=== PATIENT | female | born 1940 | race Caucasian/White ===

== ENCOUNTER 2016-10-15 09:14 | Emergency (ER) | payer OTHER ==
[2016-10-15 09:30] VITALS: RESP 20
--- NOTE | 2016-10-15 10:01 | C.PDOC ---
History Of Present Illness 75 y/o female PMHx pacemaker "cardiac arrhythmia", HTN, asthma, presents to the ED with complains of dizziness, nausea, vomiting which onset today. Pt also reports mild epigastric pain. Pt is poor historian. Denies fever, cough, SOB, chest pain or any other complaints. Time Seen by Provider: 10/15/16 09:52 Chief Complaint (Nursing): Abdominal Pain History Per: Patient Onset/Duration Of Symptoms: Hrs Current Symptoms Are (Timing): Still Present Severity: Mild Location Of Pain/Discomfort: Epigastric Radiation Of Pain To:: None Quality Of Discomfort: "Pain" Associated Symptoms: Nausea, Vomiting. denies: Fever, Chest Pain Exacerbating Factors: None Alleviating Factors: None Recent travel outside of the [place]: No Past Medical History Reviewed: Historical Data, Nursing Documentation, Vital Signs Vital Signs: Last Vital Signs Temp 97.5 F L 10/15/16 09:20 Pulse 77 10/15/16 11:40 Resp 20 10/15/16 11:40 BP 141/61 10/15/16 11:40 Pulse Ox 97 10/15/16 11:40 - Medical History PMH: Asthma, Cardia Arrhythmia, Diverticulitis, HTN Surgical History: Pacemaker - [facility] Procedures CATARAC PHACOEMULS/ASPIR (08/11/13) INSERT LENS AT CATAR EXT (08/11/13) PHYSICAL THERAPY NEC (07/08/14) Family History: States: Unknown Family Hx - Social History Hx Tobacco Use: No Hx Alcohol Use: No Hx Substance Use: No - Immunization History Hx Tetanus Toxoid Vaccination: No Hx Influenza Vaccination: No Hx Pneumococcal Vaccination: No Review Of Systems Constitutional: Negative for: Fever, Chills Cardiovascular: Negative for: Chest Pain Respiratory: Negative for: Cough, Shortness of Breath Gastrointestinal: Positive for: Nausea, Vomiting, Abdominal Pain. Negative for : Diarrhea Neurological: Positive for: Dizziness Physical Exam - Physical Exam Appears: Non-toxic, No Acute Distress Skin: Warm, Dry, No Rash Head: Atraumatic, Normacephalic Oral Mucosa: Moist Neck: Normal ROM, Supple Chest: Symmetrical Cardiovascular: Rhythm Regular, No Murmur Respiratory: Normal Breath Sounds, No Rales, No Rhonchi, No Wheezing Gastrointestinal/Abdominal: Soft, Tenderness (epigastric), No Guarding, No Rebound Extremity: Normal ROM, No Pedal Edema Extremity: Bilateral: Atraumatic Neurological/Psych: Oriented x3, Normal Speech ED Course And Treatment - Laboratory Results Result Diagrams: 10/15/16 10:42 10/15/16 10:42 ECG: Interpreted By Me, Viewed By Me ECG Rhythm: Sinus Rhythm, L BBB ECG Interpretation: No Changes From Prior Rate From EC (BPM) O2 Sat by Pulse Oximetry: 96 (on room air) Pulse Ox Interpretation: Normal - Radiology CXR: Viewed By Me, Read By Radiologist CXR Interpretation: Yes: No Acute Disease Medical Decision Making Medical Decision Making: r/o atypcial cardiac, colitis, uti, metabolic abnormality. Plan: EKG, labs, CXR, protonix, zofran, UA, IV fluids 143: ct st show ?diverticulits. pt with minimal ttp. will d/c with antibitoics, advise outpt f/u. pt states she feels well to go home, asking for d/c. stable for outpt management. Disposition - Disposition Referrals: Adam Damon MD [Staff Provider] - Disposition: HOME/ ROUTINE Disposition Time: 13:44 Condition: STABLE Additional Instructions: please see specialist. return to er with worsening symptoms or concerns. Prescriptions: Ciprofloxacin [Cipro] 500 mg PO BID #14 tab metroNIDAZOLE [Flagyl] 500 mg PO TID #21 tab Instructions: Dizziness (ED), Acute Abdominal Pain (ED), Diverticulitis (ED) - Clinical Impression Clinical Impression: Abdominal pain, Dizziness - Scribe Statement The provider has reviewed the documentation as recorded by the Bronwyn Hough Provider Attestation: All medical record entries made by the Bronwyn were at my direction and personally dictated by me. I have reviewed the chart and agree that the record accurately reflects my personal performance of the history, physical exam, medical decision making, and the department course for this patient. I have also personally directed, reviewed, and agree with the discharge instructions and disposition.
[2016-10-15 10:41] LABS: RBC URINE 9 /hpf (0-3); URINE BILIRUBIN NEGATIVE (NEGATIVE); URINE BLOOD 1+ (NEGATIVE); URINE COLOR Straw (YELLOW); URINE GLUCOSE (UA) NORMAL (Normal); URINE KETONE NEGATIVE (NEGATIVE); URINE LEUKOCYTE ESTERASE NEG Leu/uL (Negative); URINE PROTEIN 1+ mg/dL (NEGATIVE); URINE UROBILINOGEN NORMAL mg/dL (0.2-1.0); WBC URINE 1 /hpf (0-5)
[2016-10-15 10:49] LABS: BASO # 0.1 K/uL (0.0-0.2); BASO % 0.7 % (0.0-2.0); EOS # 0.1 K/uL (0.0-0.7); EOS % 0.6 % (0.0-4.0); HEMATOCRIT 44.4 % (34.0-47.0); LYMPH # 0.9 K/uL (1.0-4.3); LYMPH % 9.2 % (20.0-40.0); MEAN CELL VOLUME 92.4 fL (81.0-99.0); MEAN CORPUSCULAR HEMOGLOBIN 30.5 pg (27.0-31.0); MEAN CORPUSCULAR HGB CONC 33.1 g/dL (33.0-37.0); MEAN PLATELET VOLUME 8.7 fL (7.2-11.7); MONO # 0.7 K/uL (0.0-0.8); MONO % 6.6 % (0.0-10.0); PLATELET COUNT 281 K/uL (130-400); RED CELL DISTRIBUTION WIDTH 13.6 % (11.5-14.5); WHITE BLOOD COUNT 10.1 K/uL (4.8-10.8)
[2016-10-15 10:55] LABS: CHLORIDE 99 mmol/L (98-107); POTASSIUM 3.6 mmol/L (3.6-5.2); SODIUM 140 mmol/L (132-148)
[2016-10-15 10:56] LABS: INR 1.3
[2016-10-15 10:57] LABS: AST/SGOT 30 U/L (14-36); BILIRUBIN,TOTAL 0.8 mg/dL (0.2-1.3); CARBON DIOXIDE 25 mmol/L (22-30); GFR AFRICAN-AMERICAN > 60
[2016-10-15 10:58] LABS: ALB/GLOB RATIO 1.1 (1.0-2.1); ALKALINE PHOSPHATASE 74 U/L (38-126); ALT/SGPT 27 U/L (9-52); BLOOD UREA NITROGEN 14 mg/dL (7-17); CALCIUM 8.8 mg/dl (8.6-10.4); GLUCOSE,RANDOM 126 mg/dL (65-105); TOTAL PROTEIN 8.3 g/dL (6.3-8.3)
--- NOTE | 2016-10-15 11:06 | RAD ---
PROCEDURE: CHEST RADIOGRAPH, 1 VIEW. Technique: Single view portable semi erect @ 09:55. HISTORY: chest pain COMPARISON: 07/24/2015. FINDINGS: LUNGS: Clear. PLEURA: No pneumothorax or pleural fluid seen. CARDIOVASCULAR: No radiographic findings to suggest acute or significant cardiovascular disease. Position/ configuration of pacemaker device: Satisfactory. OSSEOUS STRUCTURES: No significant abnormalities. VISUALIZED UPPER ABDOMEN: Normal. OTHER FINDINGS: None. IMPRESSION: No active disease. No acute/significant interval changes.
[2016-10-15 11:25] LABS: EOSINOPHIL 1 % (0-4); NEUTROPHIL 89 % (50-75); TOTAL CELLS COUNTED 100
[2016-10-15] MEDS ORDERED: Iodixanol 320 MG/ML 100 ML BOTTLE IV ONE (12:19)
--- NOTE | 2016-10-15 13:37 | CT ---
PROCEDURE: CT Abdomen and Pelvis with contrast HISTORY: abd pain COMPARISON: None. TECHNIQUE: Contrast dose: 100 mL Visipaque 320 Radiation dose: Total exam DLP = 255.5 MGy-cm. FINDINGS: LOWER THORAX: No evidence of acute pathology. Again seen are small nodular opacities at the lingula. No evidence of pleural effusion. The heart is mildly enlarged. LIVER: No evidence of mass lesion or acute pathology in the liver. GALLBLADDER AND BILE DUCTS: The gallbladder is mildly distended. No evidence of acute cholecystitis. PANCREAS: Unremarkable. No gross lesion or ductal dilatation. SPLEEN: Unremarkable. ADRENALS: Unremarkable. No mass. KIDNEYS AND URETERS: The kidneys enhance symmetrically. There are small low-attenuation cystic lesion in both kidneys. VASCULATURE: Unremarkable. No aortic aneurysm. BOWEL: Diffuse colonic diverticulosis are seen. Mild stranding surrounding the distal and mid sigmoid colon in the left lower abdomen/left pelvis. The possibility of mild diverticulitis is not totally excluded. . Dense of bowel obstruction. APPENDIX: No evidence of appendicitis. PERITONEUM: Unremarkable. No free fluid. No free air. LYMPH NODES: Unremarkable. No enlarged lymph nodes. BLADDER: Unremarkable. REPRODUCTIVE: The uterus is not visualized. BONES: No acute fracture. OTHER FINDINGS: None. IMPRESSION: Diffuse colonic diverticulosis. Suspicious for mild stranding at the left lower abdomen adjacent to the sigmoid colon. Correlate clinically for diverticulitis. No evidence of acute pathology otherwise in the abdomen and pelvis.
[2016-10-15 14:29] VITALS: BP 144/85; PULSE 90; TEMP 98; O2SAT 97
--- NOTE | 2016-10-18 20:05 | CARD ---
APPROVED REPORT EKG Measurement Heart [id number] <Conclusion> Sinus rhythm Left axis deviation Left bundle branch block Abnormal ECG
== END 2016-10-15 14:37 | disposition home or self-care (01) ==
LOC: C.ER 09:14
DX: R42 Dizziness and giddiness (principal); R10.13 Epigastric pain
CPT/HCPCS: 71010; 74177; 80053; 81001; 82948; 83690; 84484; 85025; 85610; 85730; 96374; 96375; 99285; C9113; J2405; Q9967

== ENCOUNTER 2017-06-15 13:38 | Emergency (ER) | payer OTHER ==
[2017-06-15] MEDS ORDERED: Sodium Chloride 0.9% 1,000 ML IV ONE (14:10)
[2017-06-15] MEDS ORDERED: Belladonna-Phenobarbital PO STA (14:10)
[2017-06-15] MEDS ORDERED: Sodium Chloride 0.9% 1,000 ML ONE (14:25)
[2017-06-15] MEDS ORDERED: Belladonna-Phenobarbital ONE (14:25)
[2017-06-15 14:41] LABS: BASO % 0.3 % (0.0-2.0); EOS # 0.1 K/uL (0.0-0.7); EOS % 0.5 % (0.0-4.0); HEMATOCRIT 44.6 % (34.0-47.0); LYMPH # 0.8 K/uL (1.0-4.3); LYMPH % 5.6 % (20.0-40.0); MEAN CELL VOLUME 91.5 fL (81.0-99.0); MEAN CORPUSCULAR HEMOGLOBIN 30.8 pg (27.0-31.0); MEAN CORPUSCULAR HGB CONC 33.6 g/dL (33.0-37.0); MEAN PLATELET VOLUME 8.4 fL (7.2-11.7); MONO # 1.2 K/uL (0.0-0.8); MONO % 8.4 % (0.0-10.0); PLATELET COUNT 263 K/uL (130-400); WHITE BLOOD COUNT 14.3 K/uL (4.8-10.8)
[2017-06-15 14:48] LABS: INR 1.1
[2017-06-15 14:51] LABS: BILIRUBIN,TOTAL 1.1 mg/dL (0.2-1.3); CALCIUM 8.3 mg/dl (8.6-10.4); GFR AFRICAN-AMERICAN > 60; GLUCOSE,RANDOM 129 mg/dL (65-105)
[2017-06-15 14:57] LABS: NEUTROPHIL 81 % (50-75); REACTIVE LYMPHOCYTES 1 % (0-0); TOTAL CELLS COUNTED 100
[2017-06-15 15:01] LABS: ALB/GLOB RATIO 1.2 (1.0-2.1); ALKALINE PHOSPHATASE 84 U/L (38-126); ALT/SGPT 43 U/L (9-52); AST/SGOT 37 U/L (14-36); BLOOD UREA NITROGEN 11 mg/dL (7-17); CARBON DIOXIDE 26 mmol/L (22-30); CHLORIDE 94 mmol/L (98-107); POTASSIUM 4.1 mmol/L (3.6-5.2); SODIUM 131 mmol/L (132-148); TOTAL PROTEIN 8.5 g/dL (6.3-8.3)
[2017-06-15] MEDS ORDERED: Iohexol 240 (50 ml) PO STA (15:23)
[2017-06-15] MEDS ORDERED: Iohexol 240 (50 ml) ONE (15:55)
[2017-06-15] MEDS ORDERED: Iodixanol 320 MG/ML 100 ML BOTTLE IV ONE (17:38)
--- NOTE | 2017-06-15 18:36 | CT ---
EXAM: CT Abdomen and Pelvis With Intravenous Contrast CLINICAL HISTORY: 76 years old, female; Pain; Abdominal pain; Generalized; Additional info: Abd pain, vomiting TECHNIQUE: Axial computed tomography images of the abdomen and pelvis with intravenous contrast. All CT scans at this facility use one or more dose reduction techniques, viz.: automated exposure control; ma/kV adjustment per patient size (including targeted exams where dose is matched to indication; i.e. head); or iterative reconstruction technique. Coronal and sagittal reformatted images were created and reviewed. CONTRAST: 100 mL of [id number] administered intravenously. COMPARISON: No relevant prior studies available. FINDINGS: Limitations: Motion artifact - mild. Lower thorax: Pacemaker leads. Mild peripheral atelectasis/scarring. Small rounded peripheral consolidation RIGHT lower lobe. Contrast within esophagus may represent reflux. Small hiatal hernia. ABDOMEN: Liver: Unremarkable. No mass. Gallbladder and bile ducts: No calcified stones. No ductal dilation. Pancreas: No ductal dilation. No mass. Spleen: No splenomegaly. Adrenals: No mass. Kidneys and ureters: Probable RIGHT renal cyst. Few too small to characterize lesions within kidneys. No hydronephrosis. Stomach and bowel: Multiple scattered diverticula within colon. No associated inflammatory stranding. Appendix: Normal caliber. No inflammation. PELVIS: Bladder: Unremarkable. Reproductive: Hysterectomy. ABDOMEN and PELVIS: Intraperitoneal space: No significant fluid collection. No free air. Bones/joints: No acute fracture. Soft tissues: Unremarkable. Vasculature: Mild atherosclerotic disease. No aneurysm. Lymph nodes: No pathologically enlarged lymph nodes. IMPRESSION: 1. Diverticulosis without definite CT evidence of diverticulitis. 2. Small RLL consolidation. DDX: Atelectasis/scarring, early pneumonia, neoplasm. Suggest followup. 3. Incidental/non-acute findings are described above.
--- NOTE | 2017-06-15 19:21 | C.PDOC ---
Time Seen by Provider: 06/15/17 13:51 Chief Complaint (Nursing): Abdominal Pain History Per: Patient, Family Onset/Duration Of Symptoms: Hrs (this morning) Current Symptoms Are (Timing): Still Present Severity: Moderate Location Of Pain/Discomfort: Diffuse Quality Of Discomfort: "Pain" Associated Symptoms: Nausea, Vomiting Exacerbating Factors: Food Alleviating Factors: None Last Bowel Movement: Today Additional History Per: Prior Records Past Medical History Reviewed: Historical Data, Nursing Documentation, Vital Signs Vital Signs: Last Vital Signs Temp 97.8 F 06/15/17 13:41 Pulse 89 06/15/17 13:41 Resp 16 06/15/17 13:41 BP 178/82 H 06/15/17 13:41 Pulse Ox 99 06/15/17 19:21 - Medical History PMH: Asthma, Cardia Arrhythmia, Diverticulitis, HTN Surgical History: Pacemaker Other Surgeries: Hysterectomy - [facility] Procedures CATARAC PHACOEMULS/ASPIR (08/11/13) INSERT LENS AT CATAR EXT (08/11/13) PHYSICAL THERAPY NEC (07/08/14) Family History: States: Unknown Family Hx - Social History Hx Tobacco Use: No Hx Alcohol Use: No Hx Substance Use: No - Immunization History Hx Tetanus Toxoid Vaccination: No Hx Influenza Vaccination: No Hx Pneumococcal Vaccination: No Review Of Systems Except As Marked, All Systems Reviewed And Found Negative. Constitutional: Negative for: Fever Cardiovascular: Negative for: Chest Pain Respiratory: Negative for: Cough, Shortness of Breath Gastrointestinal: Positive for: Nausea, Vomiting, Abdominal Pain. Negative for : Diarrhea Genitourinary: Negative for: Dysuria Musculoskeletal: Negative for: Neck Pain, Back Pain Skin: Negative for: Rash Neurological: Negative for: Weakness, Numbness, Seizures, Altered Mental Status , Headache Physical Exam - Physical Exam Appears: Other (Uncomfortable) Skin: Normal Color, Warm, Dry, No Rash Head: Atraumatic, Normacephalic Eye(s): bilateral: PERRL, EOMI Neck: Normal ROM, Supple Cardiovascular: Rhythm Regular Respiratory: Normal Breath Sounds, No Accessory Muscle Use Gastrointestinal/Abdominal: Soft, Tenderness (nonspecific), No Distention, No Guarding, No Rebound Back: No CVA Tenderness Extremity: Normal ROM Neurological/Psych: Oriented x3, Normal Motor, Normal Sensation ED Course And Treatment - Laboratory Results Result Diagrams: 06/15/17 14:36 06/15/17 14:36 ECG: Interpreted By Me, Viewed By Me ECG Rhythm: Sinus Rhythm, 1st Degree HB, L BBB, Nonspecific Changes ECG Interpretation: No Changes From Prior Rate From EC O2 Sat by Pulse Oximetry: 99 Pulse Ox Interpretation: Normal - CT Scan/US CT abd/pelv Other Rad Studies (CT/US): Read By Radiologist, Radiology Report Reviewed CT/US Interpretation: IMPRESSION: 1. Diverticulosis without definite CT evidence of diverticulitis. 2. Small RLL consolidation. DDX: Atelectasis/ scarring, early pneumonia,. neoplasm. Suggest followup. 3. Incidental/non- acute findings are described above. Progress Note: Pt was given a copy of the CT scan report so can follow up the abnormalities with her PMD. Pt feels much better and wants to go home. Tolerating PO. Progress - Interventions Interventions:: Observation, Intravenous fluid - Medications Administered Intravenous: Antiemetic, Other (PPI) - Data Reviewed Data Reviewed: Lab, Diagnostic imaging, EKG, Old records - Patient Status Patient status: Mostly improved - Continuity of Care Discussed patient case with:: Patient, Family-HIPPA compliant, ED Nurse - Patient Plan Patient Plan: Discharge, F/U with PCP, Continue present meds Disposition Counseled Patient/Family Regarding: Studies Performed, Diagnosis, Need For Followup, Rx Given - Disposition Referrals: Luis A Mcfadden MD [Medical Doctor] - Disposition: HOME/ ROUTINE Disposition Time: 19:55 Condition: IMPROVED Additional Instructions: Drink plenty of fluids. follow up with your doctor this week for further evaluation and treatment. Return to the ER if you develop fever, vomiting, bloody or black stools, worsening of symptoms or if you have any other concerns. Prescriptions: Dicyclomine [Bentyl] 20 mg PO QID PRN #20 tab PRN Reason: Irritable Bowel Symptoms Famotidine [Pepcid] 20 mg PO BID #30 tab Ondansetron [Zofran] 4 mg PO Q8H PRN #15 tab PRN Reason: Nausea/Vomiting Instructions: Acute Abdominal Pain (ED) Forms: [employer] (Georgian) Print Language: KOREAN - Clinical Impression Clinical Impression: Abdominal pain, Nausea & vomiting
[2017-06-15 20:08] VITALS: BP 148/79; PULSE 68; RESP 18; TEMP 97.9; O2SAT 96
== END 2017-06-15 20:13 | disposition home or self-care (01) ==
LOC: C.ER 13:38
DX: R11.2 Nausea with vomiting, unspecified (principal); R10.9 Unspecified abdominal pain; I10 Essential (primary) hypertension
CPT/HCPCS: 74177; 80053; 82948; 83690; 84484; 85025; 85610; 85730; 96361; 96374; 96375; 99285; C9113; J2405; J2765; J7040; Q9966; Q9967